=== PATIENT | female | born 1975 | race Hispanic/Latino ===

== ENCOUNTER 2019-01-23 19:05 | Emergency (ER) | payer BC ==
[~2019-01-23] VITALS: Ht 170.2 cm; Wt 117.9 kg
--- OUTSIDE RECORDS SUMMARY | 2019-01-23 19:07 | XMS REPORT | Clinical Summary ---
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 Last Filed Vital Signs Not on file Plan of Treatment Not on file Results Not on fileafter 01/22/2018 Insurance Payer Benefit Subscriber ID Type Phone Address Plan / Group [employer] - [employer] CARE [employer] xxxxxxxxxxx HMO/POS HMO/POS/OP EN ACCESS (Home) [place] [address]
[2019-01-23] MEDS ORDERED: ACETAMINOPHEN 325 MG TAB PO ONE (20:45)
[2019-01-23 20:58] LABS: BASOPHILS % 0.4 % (0.0-1.0); EOSINOPHILS % 0.5 % (0.0-6.0); HEMATOCRIT 30.7 % (34.2-44.1); HEMOGLOBIN 10.5 g/dL (12.0-16.0); LYMPHOCYTES # (AUTO) 1.2 (1.0-3.2); LYMPHOCYTES % 14.5 % (18.0-39.1); MEAN CORPUSCULAR HEMOGLOBIN 32.1 pg (28-32); MEAN CORPUSCULAR HGB CONC 34.2 g/dL (31-35); MEAN CORPUSCULAR VOLUME 93.9 fL (81-99); MONOCYTES # (AUTO) 0.5 (0.2-0.8); MONOCYTES % 5.9 % (4.4-11.3); NEUTROPHILS # (AUTO) 6.2 (2.1-6.9); NEUTROPHILS % 78.1 % (38.7-80.0); PLATELET COUNT 207 x10e3/uL (140-360); RED BLOOD COUNT 3.27 x10e6/uL (3.6-5.1); RED CELL DISTRIBUTION WIDTH 13.2 % (11.7-14.4)
[2019-01-23 21:05] LABS: STREPTOCOCCUS GRP A ANTIGEN NEGATIVE (NEGATIVE)
[2019-01-23 21:15] LABS: ALBUMIN 3.4 g/dL (3.5-5.0); ALBUMIN/GLOBULIN RATIO 0.9 (0.8-2.0); ANION GAP 16.9 mmol/L (8-16); CALCIUM 9.7 mg/dL (8.4-10.2); CREATININE, SERUM 4.83 mg/dL (0.57-1.11); INFLUENZAE A&B ANTIGEN (RAPID) NEGATIVE (NEGATIVE); POTASSIUM 3.9 mmol/L (3.5-5.1)
[2019-01-23 21:51] LABS: PREGNANCY TEST, URINE NEGATIVE (NEGATIVE)
[2019-01-23 21:52] LABS: BILIRUBIN,URINE NEGATIVE (NEGATIVE); CLARITY,URINE SL CLOUDY (CLEAR); COLOR,URINE YELLOW (YELLOW); KETONES,URINE NEGATIVE (NEGATIVE); LEUKOCYTE ESTERASE ,URINE NEGATIVE (NEGATIVE); NITRITE,URINE NEGATIVE (NEGATIVE); PROTEIN,URINE DIPSTICK 2+ (NEGATIVE); URINE UROBILINOGEN 0.2 mg/dL (0.2 - 1)
--- NOTE | 2019-01-23 21:52 | Diagnostic Imaging Report ---
EXAMINATION: PA and lateral views of the chest. COMPARISON: None CLINICAL HISTORY: Fever DISCUSSION: Lines/tubes: None. Lungs: The lungs are hypoinflated. There is no evidence of pneumonia or pulmonary edema. Pleura: There is no pleural effusion or pneumothorax. Heart and mediastinum: The cardiomediastinal silhouette is normal. Bones and soft tissues: No acute bony abnormalities. IMPRESSION: Low lung volumes without acute cardiopulmonary abnormality. Signed by: Dr. Franco Moran M.D. on 01/23/2019 9:48 PM
[2019-01-23 22:08] LABS: BACTERIA,URINE MODERATE /HPF; EPITHELIAL CELLS,URINE MANY /LPF; RBC,URINE 0-5 /HPF (0-5); TRANSITIONAL EPI CELLS,URINE MODERATE
[2019-01-23] MEDS ORDERED: CIPROFLOXACIN 500 MG TAB PO SCH (23:45)
[2019-01-23] MEDS ORDERED: CIPROFLOXACIN 500 MG TAB PO ONE (23:45)
[2019-01-23 23:58] VITALS: BP 90/51
== END 2019-01-24 00:01 | disposition home or self-care (01) ==
LOC: ER 19:05
DX: R50.9 Fever, unspecified (principal); N30.90 Cystitis, unspecified without hematuria; N18.3 Chronic kidney disease, stage 3 (moderate); D63.1 Anemia in chronic kidney disease
CPT/HCPCS: 36415; 71046; 80053; 81001; 81025; 83518; 85025; 87070; 87400; 99284